=== PATIENT | male | born 2000 | race Caucasian/White ===

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

== ENCOUNTER 2025-01-11 19:36 | Emergency (ER) | payer SELFPAY ==
[2025-01-11] MEDS: Lidocaine 2% 5 ML SDV INJECT ONE (19:59)
[2025-01-11] MEDS ORDERED: Bacitracin Oint 1 GM U/D Packet ONE (20:11)
[2025-01-11] MEDS: Bacitracin Oint 1 GM U/D Packet TOP ONE (20:15)
[2025-01-11] MEDS: Diphtheria,Pertussis(Acell),Tetanus Vaccine 0.5 ML Syringe IM ONE (20:19)
[2025-01-11 20:25] VITALS: BP 127/80; PULSE 76
== END 2025-01-11 20:37 | disposition home or self-care (01) ==
LOC: LL.ED 19:36
DX: S61.213A Laceration without foreign body of left middle finger without damage to nail, initial encounter (principal); W23.1XXA Caught, crushed, jammed, or pinched between stationary objects, initial encounter
CPT/HCPCS: 12002; 90471; 90715; 99282-25; J2003